=== PATIENT | male | born 1955 | race Caucasian/White ===

== ENCOUNTER 2018-05-06 10:31 | Inpatient (IN) | payer BC, MEDICARE ==
[2018-05-06] MEDS ORDERED: GoLYTELY 4,000 ml Bottle PO SCH (13:45)
[2018-05-06 15:28] VITALS: BMI 31.4
[2018-05-06] MEDS: Sodium Chloride 0.9% 1,000 ML IV SCH ×2 (16:10→23:17)
[2018-05-06 16:19] LABS: #Basophils 0.1 thou/uL (0.0-0.2); #Eosinphils 0.3 thou/uL (0.0-0.7); #Lymphocytes 1.9 thou/uL (1.20-3.40); #Monocytes 0.6 thou/uL (0.11-0.59); %Basophils 0.8 % (0.0-1.0); %Eosinophils 3.1 % (0.0-10.0); %Lymphocytes 21.2 % (21.0-51.0); %Monocytes 7.2 % (0.0-10.0); %Neutrophils 67.7 % (42.0-75.0); Hemoglobin 13.7 g/dL (14.0-18.0); Mean Corpuscular HGB CONC 33.4 g/dL (32.0-36.0); Mean Corpuscular Hemoglobin 32.6 pg (27.0-31.0); Mean Corpuscular Volume 97.5 fL (78.0-98.0); Mean Platelet Volume 7.2 fL (7.4-10.4); Platelet Count 185 thou/uL (130-400); RBC Distribution Width 12.2 % (11.5-14.5); White Blood Cell (WBC) Count 8.9 thou/uL (4.8-10.8)
[2018-05-06] MEDS: Simvastatin 40 MG TAB PO SCH (20:25)
--- NOTE | 2018-05-07 02:57 | HP ---
REASON FOR ADMISSION: Hematochezia. HISTORY OF PRESENT ILLNESS: The patient is a 63-year-old male with past medical history of acid reflux, hypertension, and hyperlipidemia, presenting with complaints of hematochezia. The patient recently underwent a colonoscopy on May 04, 2018, with the findings of 3 polyps. The largest of which was seen in the cecum measuring approximately 2.5 cm in size. The additional 2 polyps were measuring 7 mm and 3 mm within the rectum and all 3 were completely removed with snare cautery polypectomy. In the post procedure setting, the patient was doing well with no problems or complaints. However, over the last 24 hours he has been having increased episodes of hematochezia, characterized as maroon-colored stools that were present both in the toilet and on the toilet paper. This was associated with increased borborygmi, but did not endorse any additional symptoms. He currently denies any nausea, vomiting, fevers, chills, abdominal pain, dysphagia, odynophagia, hematemesis, melena, or constipation. REVIEW OF SYSTEMS: A 10-category review of systems was obtained with all responses negative except for the pertinent positives as listed in the HPI. PAST MEDICAL HISTORY: 1. GERD. 2. Hypertension. 3. Hyperlipidemia. PAST SURGICAL HISTORY: 1. Rhinoplasty. 2. Bilateral cataract repair. 3. Neck surgery. 4. Shoulder surgery. 5. Appendectomy. 6. Tonsillectomy. FAMILY HISTORY: Positive for pancreatic cancer diagnosed in his father who was diagnosed in his 80s. SOCIAL HISTORY: Denies any tobacco or illicit drug use. Drinks approximately 2-3 drinks around twice weekly. OUTPATIENT MEDICATIONS: 1. Enalapril 10 mg daily. 2. Simvastatin 40 mg at night. 3. Ibuprofen 200 mg as needed. 4. Dexilant 60 mg daily (has not started this one yet). ALLERGIES: NO KNOWN DRUG ALLERGIES. PHYSICAL EXAMINATION: VITAL SIGNS: Temperature 97.4, pulse 76, blood pressure 156/90, respiratory rate 14, saturating 98% on room air. GENERAL: The patient is lying in bed, in no acute distress. Alert and oriented x4. HEENT: Normocephalic, atraumatic. No scleral icterus or JVD noted. CARDIOVASCULAR: Regular rate and rhythm with no discernible murmurs, gallops, or rubs. RESPIRATORY: Clear to auscultation bilaterally with no discernible wheezes or rales. ABDOMEN: Normoactive bowel sounds. Soft, nontender, nondistended, mild tenderness to palpation in the right lower quadrant only. EXTREMITIES: No cyanosis, clubbing, or edema. LABORATORY DATA: CBC with a white blood cell count of 8.9, hemoglobin 13.7, hematocrit 41, platelets 185. IMAGING DATA: No current GI imaging is available for review other than the aforementioned colonoscopy performed on May 04, 2018, with the cecal large cecal polyp removed and two smaller rectal polyps removed. ASSESSMENT AND PLAN: The patient is a 63-year-old male with past medical history of gastroesophageal reflux disease, hypertension, and hyperlipidemia, presenting with hematochezia consistent with a post polypectomy bleed. Post polypectomy bleeding. The patient underwent colonoscopy on May 04, 2018, with removal of a 2.5 cm cecal polyp and 2 rectal polyps measuring 7 mm and 3 mm in size. All 3 were removed with snare cautery polypectomy. 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 At this point, the more likely etiology for his bleed would be the large cecal polyp and would likely amenable to endoscopic intervention. RECOMMENDATIONS: 1. We will place the patient on a clear liquid diet today and make the patient n.p.o. at midnight in preparation for colonoscopy in the morning. 2. We will plan for colonoscopy tomorrow for evaluation of the polypectomy sites for any observed bleeding and intervention, if necessary. 3. We would continue to trend H and H and transfuse as necessary to maintain an H and H of 7/21. 4. Continue to monitor clinically for signs of active GI bleeding. 5. Further recommendations to follow colonoscopy. Job ID: [id number]
[2018-05-07] MEDS ORDERED: Prevnar 13-Val Conj/PF 0.5 ML SYRINGE IM ONE (09:00)
[2018-05-07] MEDS: Sodium Chloride 0.9% 1,000 ML IV SCH ×2 (09:45→16:42)
[2018-05-07] MEDS ORDERED: Ondansetron HCl/PF 4 MG/2 ML Vial IVP PRN ×2 (11:30→11:58)
[2018-05-07] MEDS ORDERED: Promethazine HCl 25 MG/ML VIAL SLOW IVP PRN (11:58)
[2018-05-07] MEDS ORDERED: Promethazine HCl 25 MG/ML VIAL IM PRN (11:58)
--- NOTE | 2018-05-07 13:00 | OP ---
DATE OF PROCEDURE: 05/07/2018 PROCEDURES PERFORMED: Colonoscopy with polypectomy. INDICATION FOR PROCEDURE: Hematochezia, post polypectomy bleeding. DESCRIPTION OF PROCEDURE: After the risks and benefits of the procedure were explained to the patient including risks of bleeding, infection, perforation, reactions to anesthesia, aspiration and/or pain, informed consent was obtained. The patient was then taken to the endoscopy suite, where deep sedation was administered via propofol and Anesthesia support. Once adequate sedation was achieved, a digital rectal examination was performed that was followed by introduction of the standard colonoscope, which was then advanced to the cecum with no difficulty. The quality of the prep was fair in the right colon, but good in the remaining areas of the colon, but adequate visualization of the colonic mucosa was achieved for the purposes of establishing possible source of GI bleeding, but inadequate for the evaluation of fine mucosal defects/lesions. The patient tolerated the procedure well with no immediate perioperative complications. Upon conclusion of the procedure, all equipment was removed from the patient and he was transferred to PACU in satisfactory condition. FINDINGS: Digital rectal exam: Small external hemorrhoids and a perianal skin tag were seen on external examination. COLON FINDINGS: Normal-appearing mucosa was seen at the ileocecal valve and appendiceal orifice. However, a 2 cm cratered ulceration was seen within the cecum consistent with the prior polypectomy site. There was some overlying clot material that was consistent with recent bleeding. Hemoclip x4 was then placed to approximate the mucosal defect with good hemostasis achieved. The quality of the prep within the cecum and ascending colon were fair due to a moderate amount of retained adherent stool. It was somewhat amenable to irrigation with adequate visualization of the colonic mucosa, but inadequate for the evaluation of fine mucosal lesions. Otherwise, normal-appearing mucosa was seen in the distal ascending, transverse, descending, and sigmoid colons. A 4 mm ulceration was seen in the rectum at approximately 7 to 10 cm passed the anal verge. Again, consistent with prior polypectomy site. This area was not noted to have any evidence of active or recent bleeding and was not intervened upon. On rectal retroflexion, small internal hemorrhoids were noted. IMPRESSION: 1. A 2 cm cratered ulceration seen in the cecum consistent with prior polypectomy site, now status post hemoclips x4 with good hemostasis achieved. 2. Fair colonic preparation in the right colon. 3. A 4 mm ulceration in the rectum consistent with prior polypectomy site, but not exhibiting any signs of active/recent bleeding. 4. Small internal and external hemorrhoids. RECOMMENDATIONS: 1. Would continue to trend H and H and transfuse as necessary to maintain an H and H of 7/. 2. Continue to monitor clinically for signs of active GI bleeding. 3. We will place the patient on a clear liquid diet with monitoring today for any further episodes of hematochezia. 4. The patient does not exhibit any further hematochezia. We would advance the diet as tolerated tomorrow with anticipation of discharge tomorrow as well. 5. We would have the patient follow up in the GI Clinic within 2 to 3 weeks after this procedure for re-evaluation. We will continue to follow. Please call with any questions. Job ID: [id number]
[2018-05-07] MEDS ORDERED: PROPOFOL 200 MG/20 ML VIAL ONE (13:37)
[2018-05-07] MEDS: Simvastatin 40 MG TAB PO SCH (20:19)
[2018-05-07 20:23] VITALS: TEMP 97.7
[2018-05-08] MEDS: Sodium Chloride 0.9% 1,000 ML IV SCH (01:33)
[2018-05-08 06:15] LABS: #Eosinphils 0.3 thou/uL (0.0-0.7); #Lymphocytes 1.5 thou/uL (1.20-3.40); #Monocytes 0.6 thou/uL (0.11-0.59); #Neutrophils 5.7 thou/uL (1.40-6.50); %Basophils 0.4 % (0.0-1.0); %Eosinophils 3.6 % (0.0-10.0); %Lymphocytes 18.1 % (21.0-51.0); %Neutrophils 70.8 % (42.0-75.0); Hemoglobin 11.9 g/dL (14.0-18.0); Mean Corpuscular HGB CONC 32.6 g/dL (32.0-36.0); Mean Corpuscular Hemoglobin 31.9 pg (27.0-31.0); Mean Corpuscular Volume 97.7 fL (78.0-98.0); Mean Platelet Volume 7.6 fL (7.4-10.4); Platelet Count 166 thou/uL (130-400); RBC Distribution Width 12.1 % (11.5-14.5); Red Blood Cell (RBC) Count 3.75 mill/uL (4.70-6.10); White Blood Cell (WBC) Count 8.1 thou/uL (4.8-10.8)
[2018-05-08 07:55] VITALS: BP 124/75
--- NOTE | 2018-05-08 15:13 | DIS ---
DATE OF ADMISSION: 05/06/2018 DATE OF DISCHARGE: 05/08/2018 REASON FOR ADMISSION: Post polypectomy bleeding. DISCHARGE SUMMARY: The patient is a 63-year-old male with a past medical history of acid reflux, hypertension, and hyperlipidemia, who initially presented to the hospital with complaints of hematochezia. He had undergone a colonoscopy on May 04, 2018, with the findings of 3 polyps, the largest of which was in the cecum measuring approximately 2.5 cm in size. This particular polyp was removed with snare cautery polypectomy and the patient had done well in the post in the immediate postoperative period with no particular complaints or problems; however, within 24 to 48 hours after the procedure, he experienced increased episodes of hematochezia, characterized as maroon-colored stools that were both present in the toilet and on the toilet paper and in large amounts to the point where he had bowel movements to consisted of primarily blood with these increasing bleeding symptoms. He was prompted to go to [facility] for evaluation, admission, and urgent colonoscopy for evaluation of this bleeding. He subsequently underwent a colonoscopy on May 07, 2018, which showed the presence of a large cratered ulceration within the cecum measuring approximately 2 cm in size with areas of small clot overlying the ulcer itself, but no evidence of active bleeding. This ulceration was then intervened upon with hemoclip x4 with good approximation of the mucosal defect. Over the next 24 hours, the patient did not have any further episodes of hematochezia nor did he have any other systemic problems. He was able to tolerate a solid diet and did have a bowel movement shortly before discharge that was nonbloody in appearance. The patient was then discharged to home with instructions to follow up in the GI Clinic within [address] to [address] Eduardo. DISCHARGE DIAGNOSIS: Post polypectomy bleeding, status post hemoclip x4. OUTPATIENT MEDICATIONS: Resume normal outpatient medications including; 1. Enalapril 10 mg daily. 2. Simvastatin 40 mg at night. 3. Ibuprofen 200 mg as needed, but hold over the next week. 4. Dexilant 60 mg daily. ACTIVITY: As tolerated. DIET: Resume regular diet. Outpatient referrals, GI Clinic for re-evaluation by Dr. Eduardo. Job ID: [id number]
== END 2018-05-08 12:24 | disposition home or self-care (01) | DRG 920 ==
LOC: 3SE 11:17 → T4-A 11:34
PROVIDERS: ADMIT Internal Medicine; ATTEND Internal Medicine
PROC: 0W3P8ZZ Control Bleeding in Gastrointestinal Tract, Via Natural or Artificial Opening Endoscopic (ICD-10-PCS; principal; 2018-05-07)
DX: K91.840 Postprocedural hemorrhage of a digestive system organ or structure following a digestive system procedure (principal); K62.6 Ulcer of anus and rectum; Y83.8 Other surgical procedures as the cause of abnormal reaction of the patient, or of later complication, without mention of misadventure at the time of the procedure; I10 Essential (primary) hypertension; E78.5 Hyperlipidemia, unspecified; K21.9 Gastro-esophageal reflux disease without esophagitis; K64.8 Other hemorrhoids; K64.4 Residual hemorrhoidal skin tags; Z98.890 Other specified postprocedural states; Z80.8 Family history of malignant neoplasm of other organs or systems; Z79.899 Other long term (current) drug therapy; Z86.010 Personal history of colon polyps
CPT/HCPCS: 36415; 85025; J2704

== ENCOUNTER 2022-05-21 08:45 | Outpatient (CLI) | payer MEDICARE, OTHER | END 2022-05-21 08:46 | disposition home or self-care (01) | LOC: NM 08:45 | PROVIDERS: ATTEND Psychiatry & Neurology Neurology | DX: G47.69 Other sleep related movement disorders (principal) | CPT/HCPCS: 78803; A9584 ×2 ==

== ENCOUNTER 2023-01-07 17:00 | Outpatient (CLI) | payer MEDICARE, OTHER | END 2023-01-07 17:01 | disposition home or self-care (01) | LOC: SLEEPLAB 17:00 | PROVIDERS: ATTEND Internal Medicine | DX: G47.33 Obstructive sleep apnea (adult) (pediatric) (principal); G47.61 Periodic limb movement disorder | CPT/HCPCS: 95811 ==